=== PATIENT | female | born 1990 | race Caucasian/White ===

== ENCOUNTER 2017-02-23 21:05 | Emergency (ER) | payer OTHER ==
[~2017-02-23] VITALS: Ht 157.5 cm; Wt 47.0 kg
[~2017-02-23 21:05] MED LIST: BACTRIM DS1 TAB PO; CORTISPORIN OTI10 ML AS; KEFLEX500 MG OR; NO CURRENT MEDS; ZITHROMAX250 MG PO
[2017-02-23] MEDS ORDERED: NAPROSYN500 MG PO (23:58)
[2017-02-24 00:09] VITALS: BP 142/91
== END 2017-02-24 00:25 | disposition home or self-care (01) | DRG 552 ==
LOC: ED 21:05
DX: S16.1XXA Strain of muscle, fascia and tendon at neck level, initial encounter (principal); F17.210 Nicotine dependence, cigarettes, uncomplicated; M54.9 Dorsalgia, unspecified; V49.40XA Driver injured in collision with unspecified motor vehicles in traffic accident, initial encounter

== ENCOUNTER 2017-06-12 11:59 | Emergency (ER) | payer SELFPAY ==
[~2017-06-12] VITALS: Ht 157.5 cm; Wt 48.0 kg
[~2017-06-12 11:59] MED LIST changes: +NAPROSYN500 MG PO
[2017-06-12] MEDS ORDERED: MOTRIN800 MG PO (12:34)
[2017-06-12] MEDS ORDERED: PENICILLN VK500 MG PO (12:34)
[2017-06-12] MEDS ORDERED: LORTAB 5/3255 MG PO (12:34)
[2017-06-12 12:36] VITALS: BP 129/91
== END 2017-06-12 12:39 | disposition home or self-care (01) | DRG 159 ==
LOC: ED 11:59
DX: K02.9 Dental caries, unspecified (principal); F17.210 Nicotine dependence, cigarettes, uncomplicated

== ENCOUNTER 2018-05-01 17:41 | Emergency (ER) | payer SELFPAY ==
[~2018-05-01] VITALS: Ht 157.5 cm; Wt 48.4 kg
[~2018-05-01 17:41] MED LIST changes: +LORTAB 5/3255 MG PO; +MOTRIN800 MG PO; +PENICILLN VK500 MG PO
[2018-05-01] MEDS ORDERED: TRAMADOL HYDROC50 MG PO (18:25)
[2018-05-01] MEDS ORDERED: AMOXICILLIN875 MG PO (18:25)
[2018-05-01 18:30] VITALS: BP 137/89
== END 2018-05-01 18:30 | disposition home or self-care (01) | DRG 159 ==
LOC: ED 17:41
DX: K04.7 Periapical abscess without sinus (principal); K08.89 Other specified disorders of teeth and supporting structures; H92.01 Otalgia, right ear

== ENCOUNTER 2018-08-24 14:30 | Emergency (ER) | payer SELFPAY ==
[~2018-08-24] VITALS: Ht 157.5 cm; Wt 44.0 kg
[~2018-08-24 14:30] MED LIST changes: +AMOXICILLIN875 MG PO; +TRAMADOL HYDROC50 MG PO
[2018-08-24 14:51] LABS: URINE BILIRUBIN - DIPSTICK NEGATIVE (NEGATIVE); URINE BLOOD DIPSTICK MODERATE (NEGATIVE); URINE COLOR YELLOW; URINE GLUCOSE - DIPSTICK NEGATIVE (NEGATIVE); URINE KETONE NEGATIVE (NEGATIVE); URINE NITRITE - DIPSTICK NEGATIVE (Negative); URINE PROTEIN - DIPSTICK NEGATIVE (NEG-TRACE); URINE SPECIFIC GRAVITY 1.025; URINE UROBILINOGEN - DIPSTICK 0.2 E.U./dL (0.2)
[2018-08-24 14:52] LABS: URINE LEUK ESTERASE SMALL (NEGATIVE)
[2018-08-24 15:04] LABS: URINE BACTERIA FEW hpf; URINE RBC 25-50 RBC/hpf (0-5); URINE SQUAMOUS EPITHELIAL CELL FEW EPI/hpf (0-FEW); URINE WBC 20-50 WBC/hpf (0-5)
[2018-08-24] MEDS ORDERED: CEPHALEXIN500 MG PO (15:06)
[2018-08-24 15:13] VITALS: BP 118/66
== END 2018-08-24 15:13 | disposition home or self-care (01) | DRG 690 ==
LOC: ED 14:30
PROVIDERS: Family Medicine
DX: N39.0 Urinary tract infection, site not specified (principal)

== ENCOUNTER 2019-03-18 12:47 | Emergency (ER) | payer SELFPAY ==
[~2019-03-18] VITALS: Ht 157.5 cm; Wt 45.0 kg
[~2019-03-18 12:47] MED LIST changes: +CEPHALEXIN500 MG PO
[2019-03-18 13:13] VITALS: BP 158/88
== END 2019-03-18 13:13 | disposition home or self-care (01) | DRG 607 ==
LOC: ED 12:47
DX: B35.3 Tinea pedis (principal)